=== PATIENT | female | born 1975 | race Caucasian/White ===

== ENCOUNTER 2016-12-11 21:10 | Emergency (ER) | payer BC, OTHER ==
--- NOTE | 2016-12-11 21:21 | UCPHY ---
H & P Patient Type: New HPI/ROS: HPI CHIEF COMPLAINT: Sore throat, sinus congestion, sinus pain HISTORY OF PRESENT ILLNESS: This patient very pleasant 41-year-old female no significant medical or surgical history does not take any daily medications presents to the urgent care with anterior maxillary sinus congestion and pain, frontal sinus pain, sore throat. No ear pain no fever. Thinks that she is getting a sinus infection. No vomiting. Nontoxic appearing Past Medical History: Sinusitis Past Surgical History: no significant surgical history Social History: denies use of drugs alcohol tobacco products Family History: Noncontributory ROS REVIEW OF SYSTEMS: A comprehensive 10 point review of systems is otherwise negative aside from elements mentioned in the history of present illness. Exam Constitutional appears well nontoxic, triage nursing summary reviewed, vital signs reviewed, awake/alert. Eyes normal conjunctivae and sclera, EOMI, PERRLA. HENT bilateral TMs are clear, tenderness palpation over the maxillary sinus and frontal sinus, normal inspection, atraumatic, moist mucus membranes, no epistaxis, neck supple/ no meningismus, no raccoon eyes. Respiratory clear to auscultation bilaterally, normal breath sounds, no respiratory distress, no wheezing. Cardiovascular rate normal, regular rhythm, no murmur, no edema, distal pulses normal. Gastrointestinal soft, non-tender, no rebound, no guarding, normal bowel sounds, no distension, no pulsatile mass. Genitourinary no CVA tenderness. Musculoskeletal no midline vertebral tenderness, full range of motion, no calf swelling, no tenderness of extremities, no meningismus, good pulses, neurovascularly intact. Skin pink, warm, & dry, no rash, skin atraumatic. Neurologic awake, alert and oriented x 3, AAOx3, moves all 4 extremities equally, motor intact, sensory intact, CN II-XII intact, normal cerebellar, normal vision, normal speech. Psychiatric normal mood/affect. Heme/Lymph/Immune no lymphadenopathy. Differential Diagnosis: Includes but is not limited to in a particular order acute sinusitis, viral syndrome, upper respiratory tract infection, strep pharyngitis, viral pharyngitis Medical Decision Making: Plan for patient is 1 rapid strep to start azithromycin for acute sinusitis. Patient understands return to Urgent Care emergency room if there is worsening of symptoms high fever, vomiting worsening sore throat, worsening sinus pain. = Source: Patient - Family History Significant Family History: No pertinent family hx Allergies/Adverse Reactions: No Known Allergies Allergy (Unverified 12/11/16 21:35) Home Medications: Medication Instructions Recorded AZITHROMYCIN [Z-PACK] 250 mg PO DAILY #6 tab 12/11/16 Estrogens, Conjugated [Premarin] 12/11/16 Ibuprofen [Motrin (*)] 800 mg PO Q6-8PRN #7 tab 12/11/16 Medical Decision Making - Data Points Laboratory Results: 12/11/16 21:29 Group A Strep Screen Pending Departure - Departure Disposition: Home, Routine, Self-Care Clinical Impression: Sinusitis Qualifiers: Sinusitis location: maxillary Chronicity: acute Recurrence: non-recurrent Qualified Code(s): J01.00 - Acute maxillary sinusitis, unspecified Condition: Good Instructions: Sinusitis (ED) Additional Instructions: 1. Stay well-hydrated drink lots of fluids. 2. Take antibiotic as prescribed 3.Return to the urgent care or emergency room if you have worsening symptoms questions or concerns. Referrals: JAMES JOHNSON [Primary Care Provider] - As per Instructions Prescriptions: AZITHROMYCIN [Z-PACK] 250 mg PO DAILY #6 tab Ibuprofen [Motrin (*)] 800 mg PO Q6-8PRN #7 tab - PQRS PQRS Measurement: n/a
[2016-12-11] MEDS ORDERED: AZITHROMYCIN 250 MG TAB PO ONE (21:36)
[2016-12-11 21:38] VITALS: BP 92/74; PULSE 18; RESP 18; TEMP 99; O2SAT 97
== END 2016-12-11 22:10 | disposition home or self-care (01) ==
LOC: CED 21:10
DX: J01.00 Acute maxillary sinusitis, unspecified (principal)
CPT/HCPCS: 87880-PO; 99204-PO; G0463-PO